=== PATIENT | female | born 1935 | race Caucasian/White ===

== ENCOUNTER 2020-04-10 08:59 | Outpatient (CLI) | payer MEDICARE, SELFPAY ==
--- NOTE | ~2020-04-10 | NM_ITS ---
EXAMINATION: NM parathyroid imaging w spect DATE: 04/10/2020 12:45 INDICATION: Hypercalcemia TECHNIQUE: 18.5 mCi Tc99m tetrofosmin (Myoview) was administered by intravenous route. Anterior image s of the neck were obtained at 10 minutes and 2 hours. COMPARISON: None. FINDINGS/IMPRESSION: There is no focus of persistent activity in the area of the thyroid or mediastinum to suggest parathy roid adenoma. Reviewed, dictated and finalized at location A.
== END 2020-04-10 09:00 | disposition home or self-care (01) ==
PROVIDERS: PCP Family Medicine; Visit Provider Family Medicine
DX: E83.52 Hypercalcemia (principal)
CPT/HCPCS: 78071; A9500

== ENCOUNTER 2020-04-13 11:58 | Outpatient (CLI) | payer MEDICARE, SELFPAY ==
--- NOTE | ~2020-04-13 | XR_ITS ---
EXAMINATION: XR chest 2V DATE: 04/13/2020 12:21 INDICATION: Hypercalcemia. TECHNIQUE: Frontal and lateral views of the chest were obtained. COMPARISON: Chest 2 views 08/11/2008 FINDINGS: Calcified right lung nodules and calcified right hilar lymph nodes are consistent with old granulomatous disease. No pleural effusion or pneumothorax. The heart size is normal. IMPRESSION: 1. No acute cardiopulmonary disease. Reviewed, dictated and finalized at location A.
[2020-04-13 13:31] LABS: Alanine Aminotransferase 20 U/L (4-35); Albumin Level 4.3 g/dL (3.5-5.1); Alkaline Phosphatase 105 U/L (38-126); Anion Gap 1 mmol/L (8-16); Aspartate Amino Transferase 33 U/L (14-36); Bilirubin,Total 0.2 mg/dL (0.2-1.3); Blood Urea Nitrogen 19 mg/dL (7-17); Calcium 11.1 mg/dL (8.4-10.2); Carbon Dioxide 32 mmol/L (22-30); Chloride 104 mmol/L (98-107); Estimated Glomerular Filt Rate > 60; Glucose 94 mg/dL (65-105); Potassium 4.5 mmol/L (3.4-5.0); Sodium 137 mmol/L (137-145)
[2020-04-13 13:42] LABS: Parathyroid Intact 107.6 pg/mL (7.5-53.5)
== END 2020-04-13 11:59 | disposition home or self-care (01) ==
LOC: ANHIMG 12:00
PROVIDERS: PCP Family Medicine; Visit Provider Family Medicine
DX: E83.52 Hypercalcemia (principal)
CPT/HCPCS: 36415; 71046; 80053; 83970

== ENCOUNTER 2020-04-30 08:11 | Outpatient (CLI) | payer MEDICARE, SELFPAY ==
--- NOTE | ~2020-04-30 | US_ITS ---
EXAMINATION: US thyroid DATE: 04/30/2020 08:53 INDICATION: Hyperparathyroidism TECHNIQUE: Multiple ultrasound images of the thyroid were obtained. COMPARISON: None. FINDINGS: The right thyroid lobe measures 4.2 x 2.0 x 2.5 cm. The left thyroid lobe measures 2.0 x 1.2 x 1.0 c m. Bilateral thyroid nodules. There are a couple similar appearing round solid isoechoic nodules wit h smooth margins with echogenic foci. (TI-RADS 4, moderately suspicious , FNA if >=1.5 cm, annual fol lowup is >1 cm) which measure 9 mm and 10 mm in maximal dimensions. 9 mm wider than tall solid hypoec hoic solid nodule with smooth margins and without echogenic foci at the inferior left thyroid, also T I RADS 4. 8 mm wider than tall anechoic nodule with large echogenic foci compatible with, tingling in the mid left thyroid (TI-RADS 2, not suspicious, no FNA recommended). Finally there is a 1.5 x 1.0 x 1.2 cm solid iso to slightly hypoechoic nodule positioned inferior to and appearing separate from th e left thyroid lobe which could represent either a parathyroid adenoma or exophytic left thyroid nodu le which would be (TI-RADS 3, mildly suspicious , FNA if >=2.5 cm, annual followup is >1.5 cm). IMPRESSION: 1. Multinodular goiter, none meeting criteria for ultrasound-guided biopsy and would recommend annual ultrasound follow-up. 2. 1.5 cm nodule inferior to and appearing separate from the left thyroid which is suspicious for par athyroid adenoma although no abnormal activity was identified at this location on the prior parathyro id scintigraphy differential would include exophytic left thyroid nodule. Reviewed, dictated and finalized at location B. IMPRESSION: 1. Multinodular goiter, none meeting criteria for ultrasound-guided biopsy and would recommend annual ultrasound follow-up. 2. 1.5 cm nodule inferior to and appearing separate from the left thyroid which is suspicious for parathyroid adenoma although no abnormal activity was identi fied at this location on the prior parathyroid scintigraphy differential would include exophytic left thyroid nodule.
== END 2020-04-30 08:12 | disposition home or self-care (01) ==
PROVIDERS: PCP Family Medicine; Visit Provider Otolaryngology
DX: E21.3 Hyperparathyroidism, unspecified (principal); E04.2 Nontoxic multinodular goiter
CPT/HCPCS: 76536

== ENCOUNTER 2020-07-21 02:06 | Outpatient (CLI) | payer MEDICARE, SELFPAY ==
[2020-07-21 18:37] LABS: SARS-CoV-2 RNA PCR Negative
== END 2020-07-21 02:07 | disposition home or self-care (01) ==
LOC: ANHCOVIDDT 02:06
PROVIDERS: PCP Family Medicine; Visit Provider Otolaryngology
DX: Z01.812 Encounter for preprocedural laboratory examination (principal); Z20.822 Contact with and (suspected) exposure to COVID-19
CPT/HCPCS: C9803; U0003; U0005

== ENCOUNTER 2020-07-21 08:36 | Outpatient (CLI) | payer MEDICARE, SELFPAY ==
[2020-07-21 08:52] LABS: Hematocrit 37.3 % (37.0-47.0); Hemoglobin 11.9 g/dL (12.0-15.0)
== END 2020-07-21 08:37 | disposition home or self-care (01) ==
PROVIDERS: Anesthesiology; PCP Family Medicine; Visit Provider Otolaryngology
DX: Z01.818 Encounter for other preprocedural examination (principal); D64.9 Anemia, unspecified
CPT/HCPCS: 36415; 85014; 85018

== ENCOUNTER 2020-07-24 01:26 | Day surgery (SDC) | payer MEDICARE, SELFPAY ==
[2020-07-14 12:11] VITALS: BMI 28.8
--- NOTE | 2020-07-22 11:52 | PM.IMHP ---
H&P: HPI History of Present Illness Date/Time: 07/22/20 11:52 Chief Complaint: Hyperparathyroidism. Narrative: Sheela De Jesus is a 84 year old female with hypercalcemia, normal vitamin d, and an elevated pth. Sestamibi scan negative. US demonstrates a left inferior lesion which could represent a parathyroid adenoma. Pt presents for a planned surgical procedure. Review of Systems Constitutional: Constitutional: Denies fatigue, Denies fever(s) and Denies lethargy Eyes: Eyes: Denies blurry vision and Denies change in vision ENT: Reports as per HPI Cardiovascular: Cardiovascular: Denies chest pain Respiratory: Respiratory: Denies cough Endocrine: Endocrine: Denies fatigue Hematologic/Lymphatic: Hematologic/Lymphatic: Denies easy bleeding, Denies easy bruising and Denies lymphadenopathy Allergic/Immunologic: Allergic/Immunologic: Denies seasonal rhinorrhea [facility] Surgical History Surgical History History of carpal tunnel release Status post appendectomy Status post bunionectomy Status post hysterectomy with oophorectomy Status post nasal septoplasty Status post partial thyroidectomy Status post tonsillectomy and adenoidectomy Status post trigger finger release Status post tubal ligation Family History Family History Father Family history of lung cancer Patient's father is Family history of malignant neoplasm of urinary bladder Mother Family history of lung cancer Family history of malignant neoplasm of breast in first degree relative Patient's mother is Sibling Family history of lung cancer Patient's brother is Other Family history of malignant neoplasm of male breast Social History Social History Years smoked: 30 Smoking status: Former smoker Tobacco type: cigarettes Second hand tobacco smoke exposure: No Smoking end date: 01/01/92 Additional smoking assessment comments: FEW CIG/WEEK FOR YEARS Alcohol intake: current Drinks per week: 0 Substance use: never Substance use type: does not use Gender identity (if verbalized by the patient): Female Spiritual care concerns: No Meds Home Medications and Allergies Home Medications Medication Instructions Recorded Confirmed Type ascorbate calcium (vitamin C) 500 500 mg PO DAILY 05/15/19 07/14/20 History mg tablet aspirin 81 mg tablet,delayed 81 mg PO DAILY 05/15/19 07/14/20 History release ferrous gluconate 240 mg (27 mg 240 mg PO DAILY 05/15/19 07/14/20 History iron) tablet multivitamin 1 tablet PO DAILY 05/15/19 07/14/20 History levothyroxine 50 mcg tablet 50 mcg PO DAILY #90 tablet 02/26/20 07/14/20 Rx Allergies Allergy/AdvReac Type Severity Reaction Status Date / Time hydrocodone Allergy Mild itching Verified 07/14/20 12:05 midazolam AdvReac Unknown AFFECTS Verified 07/14/20 12:05 MEMORY TOO LONG Sulfa (Sulfonamide AdvReac Unknown Hallucinati Verified 07/14/20 12:05 Antibiotics) ng Exam Const: General: cooperative, healthy appearing, comfortable, well developed and alert HENMT: Head: normal to inspection, normocephalic and atraumatic Ears: hearing grossly normal bilaterally, external ears normal, TM's normal bilaterally and EAC's normal General nose exam: Normal external nose present, Normal nares present, No nasal polyps present, Normal nasal mucous membranes and turbinates present and Normal septum present Face and sinus: normal facial exam Mouth: Yes Normal oral and palatal mucosa present, Yes lip normal, Yes tongue normal, Yes oropharynx normal and Yes moist mucous membranes Teeth and gingiva: dentition normal and gingiva normal Throat: posterior oropharynx normal, tonsils normal and uvula midline Eyes: General: appearance normal, both eyes and all related structures Periorbital: periorbital fin
--- NOTE | 2020-07-23 15:16 | WPDANESEPPF ---
Anes - Initial Pre Proc Eval Procedure: Operation Date: 07/24/20 14:00 Proposed Procedures p Parathyroid Exploration - Yuan Devine MD Date/Time: 07/23/20 15:16 Surgeon: Yuan Devine MD Pre Op Diagnosis: hyperparathyroidism Patient Data Age: 84 Gender: F Height: 1.52 m Weight: 67 kg Allergies Allergy/AdvReac Type Severity Reaction Status Date / Time hydrocodone AdvReac Unknown Unknown Verified 07/24/20 11:25 midazolam AdvReac Unknown AFFECTS Verified 07/24/20 11:25 MEMORY TOO LONG Sulfa (Sulfonamide AdvReac Unknown Hallucinati Verified 07/24/20 11:25 Antibiotics) ng Home Medications Medication Instructions Recorded Confirmed Type ascorbate calcium (vitamin C) 500 500 mg PO DAILY 05/15/19 07/24/20 History mg tablet aspirin 81 mg tablet,delayed 81 mg PO DAILY 05/15/19 07/24/20 History release ferrous gluconate 240 mg (27 mg 240 mg PO DAILY 05/15/19 07/24/20 History iron) tablet multivitamin 1 tablet PO DAILY 05/15/19 07/24/20 History levothyroxine 50 mcg tablet 50 mcg PO DAILY #90 tablet 02/26/20 07/24/20 Rx Patient hx anesthesia problems: none Family hx anesthesia problems: none PMFSH Past Medical History Medical History (Updated 07/23/20 @ 15:17 by Jose Antonio Bird MD) Essential tremor Gastro-esophageal reflux disease without esophagitis Hyperparathyroidism Hypothyroidism Osteoarthritis, generalized Vitamin D deficiency, unspecified Surgical History Surgical History History of carpal tunnel release Status post appendectomy Status post bunionectomy Status post hysterectomy with oophorectomy Status post nasal septoplasty Status post partial thyroidectomy Status post tonsillectomy and adenoidectomy Status post trigger finger release Status post tubal ligation Family History Family History Father Family history of lung cancer Patient's father is Family history of malignant neoplasm of urinary bladder Mother Family history of lung cancer Family history of malignant neoplasm of breast in first degree relative Patient's mother is Sibling Family history of lung cancer Patient's brother is Other Family history of malignant neoplasm of male breast Social History Social History Years smoked: 30 Smoking status: Former smoker Tobacco type: cigarettes Second hand tobacco smoke exposure: No Smoking end date: 01/01/92 Additional smoking assessment comments: FEW CIG/WEEK FOR YEARS Alcohol intake: current Drinks per week: 0 Substance use: never Substance use type: does not use Living arrangements: alone Gender identity (if verbalized by the patient): Female Spiritual care concerns: No Anes - Eval Final PreProcedure Day of Procedure 07/23/20 15:16 Patient weight: obese Heart: regular rate and rhythm Lungs: clear to auscultation and normal air movement Airway: Mallampati scale class II Neurological: alert and oriented Last oral intake: >/= 8 hours ASA classification: III Emergent: no Anesthetic plan: proceed Anesthesia type and monitoring: general GIVS Informed Consent: The patient's anesthetic plan and its attendant risks and benefits were discussed with the patient/family/POA. Questions were solicited and answers provided to the satisfaction of the patient/family/POA.
[2020-07-24] VITALS (12 sets, daily range): BP systolic 123–149; BP diastolic 55–87; PULSE 70–81; RESP 12–20; TEMP 36.6–37.5; O2SAT 96–100
--- NOTE | ~2020-07-24 | NM_ITS ---
EXAMINATION: NM parathyroid injection only DATE: 07/24/2020 13:03 INDICATION: Hyperparathyroidism. TECHNIQUE: 5 mCi Tc99m sestamibi was administered intravenously for intraoperative localization. No i mages were obtained. IMPRESSION: 1. Radiotracer injection. Reviewed, dictated and finalized at location B. MANAGERS IMPRESSION: 1. Radiotracer injection.
--- NOTE | 2020-07-24 06:56 | WPDHPUPDATE1 ---
History and Physical Update Update Date/Time: 07/24/20 06:56 History and Physical has been reviewed, including an updated exam of the patient. There are NO changes in the patient's condition. Risks, benefits, and alternatives have been discussed and questions answered. Patient agrees to proceed with procedure.
[2020-07-24] MEDS: LACTATED RINGERS 1,000 ML 30 ML IV CONT ×2 (11:50→15:43)
[2020-07-24 13:28] LABS: Parathyroid Intact 219.4 pg/mL (7.5-53.5)
[2020-07-24] MEDS: ceFAZolin 500 MG in DEXTROSE 5% IN WATER 50 ML 100 MG IVPB (13:44)
[2020-07-24] MEDS: LIDO 1%/EPINEPHRINE 1:100,000 20 ML VIAL INFILTRATE (14:00)
--- NOTE | 2020-07-24 14:47 | SUR.OPER ---
Frozen Section sent with WILBERTO Greenwood and received in pathology by Roseanne
--- NOTE | 2020-07-24 15:05 | SUR.OPER ---
PTH sent with WILBERTO Greenwood and received in the lab by Fina
[2020-07-24 15:33] LABS: Parathyroid Intact 32.4 pg/mL (7.5-53.5)
--- NOTE | 2020-07-24 15:53 | PM.PROC ---
Procedure Note - Detailed Date of procedure: 07/24/20 Pre-op diagnosis: hyperparathyroidism Post-op diagnosis: same Procedure performed: Parathyroidectomy Description of procedure: The patient was correctly identified and consent was verified in the preoperative holding area. The patient was then brought to the operating room and a time-out was performed. General anesthesia was induced an endotracheal tube was secured the patient's airway and secured. This was a Nims monitoring tube. The patient was then prepped and draped for the aforementioned procedures. Previous thyroidectomy scar was utilized and 2 cc of 1% lidocaine with 1 100,000 parts epinephrine was injected deep to the scar. Fifteen blade was utilized to incise the midportion of the scar. Dissection with hemostats as well as Bovie electrocautery was utilized to exposed the left thyroid bed. The adenoma was visible and it was noted that the recurrent laryngeal nerve on the left was superficial to the adenoma. The nerve was gently dissected off of it and adenoma removed with a combination of blunt dissection Bovie electrocautery ligature as well as bipolar. Hemostasis was noted to be excellent. 15 minutes after adenoma removal a PTH was checked and noted to be 32 with the original PTH being 220. The wound was then copiously copiously irrigated and a small amount of hematomas applied to the bed. The deep areas were closed the straps in the midline were closed with 3 0 Vicryl sutures in the platysma was reapproximated with 3 0 Vicryl sutures. A 4 0 running Monocryl was utilized in the deep dermal layer. The skin was glued closed. As the patient awoke a glide scope was utilized to confirm that both vocal cords moved. The vocal cord on the left did not stimulate intraoperatively for some portion. I performed all portions of the procedure. Care of the patient was turned over to Anesthesiology. Anesthesia: GLMA Surgeon: Yuan Devine MD Estimated blood loss (mL): 5 Complications: No immediate complications Condition: stable Disposition: PACU
[2020-07-24] MEDS: fentaNYL CITRATE INJ (*CRX) 100 MCG/2 ML VIAL 25 MCG IV PUSH ×2 (15:54→16:04)
--- NOTE | 2020-07-24 16:51 | SUR.PHASEI ---
7999 - dr. amador at bedside
--- NOTE | 2020-07-24 17:00 | SUR.PHASEI ---
1700 - dr. amador at bedside talking with pt
== END 2020-07-24 18:27 | disposition home or self-care (01) ==
PROVIDERS: PCP Family Medicine; Visit Provider Otolaryngology
PROC: (CPT 60500; principal; 2020-07-24 14:00)
DX: E21.3 Hyperparathyroidism, unspecified (principal); D35.1 Benign neoplasm of parathyroid gland; E89.0 Postprocedural hypothyroidism; K21.9 Gastro-esophageal reflux disease without esophagitis; E55.9 Vitamin D deficiency, unspecified; G25.0 Essential tremor; Z79.82 Long term (current) use of aspirin; Z87.891 Personal history of nicotine dependence
CPT/HCPCS: 60500; 36415; 78808; 83970; 85014; 85018; 88305; 88331; A9270; A9500; C9803; J0330; J0690; J1100; J2405; J3010; J7120; U0003; U0005

== ENCOUNTER 2020-08-20 07:53 | Outpatient (CLI) | payer MEDICARE, SELFPAY ==
[2020-08-20 08:21] LABS: Anion Gap 8 mmol/L (8-16); Blood Urea Nitrogen 24 mg/dL (7-17); Calcium 9.2 mg/dL (8.4-10.2); Carbon Dioxide 28 mmol/L (22-30); Chloride 104 mmol/L (98-107); Estimated Glomerular Filt Rate > 60; Glucose 96 mg/dL (65-105); Potassium 4.2 mmol/L (3.4-5.0); Sodium 140 mmol/L (137-145)
== END 2020-08-20 07:54 | disposition home or self-care (01) ==
LOC: ANHLAB 07:56
PROVIDERS: PCP Family Medicine; Visit Provider Family Medicine
DX: E21.3 Hyperparathyroidism, unspecified (principal)
CPT/HCPCS: 36415; 80048

== ENCOUNTER 2021-03-17 11:06 | Outpatient (CLI) | payer MEDICARE, SELFPAY ==
--- NOTE | ~2021-03-17 | XR_ITS ---
EXAMINATION: XR chest 2V 03/17/2021 11:40 INDICATION: Intermittent cough PROCEDURE: 2 view chest COMPARISON: 04/13/2020 FINDINGS: The lungs are clear. The cardiomediastinal silhouette is within normal limits. There are no pleural effusions. There is no pneumothorax suspected. There are calcified granulomas in the rig ht lung. IMPRESSION: 1: NO ACUTE CARDIOPULMONARY DISEASE. Reviewed, dictated and finalized at location A.
== END 2021-03-17 11:07 | disposition home or self-care (01) ==
LOC: ANHIMG 11:10
PROVIDERS: PCP Family Medicine; Visit Provider Nurse Practitioner Family
DX: R05 Cough (principal)
CPT/HCPCS: 71046

== ENCOUNTER → 2021-04-02 10:45 | Outpatient (CLI) | payer MEDICARE, SELFPAY ==
--- NOTE | ~2021-04-02 | DEXA_ITS ---
Bone Density Report Name: Sheela De Jesus Age: 85 Sex: Female Ethnicity: White Date of : 1935 Indication: postmenopausal; screening for osteoporosis; height loss; prior fracture; hysterectomy; Referring Provider: Jessica Garcia Study: Bone densitometry was performed. Exam Date: April 02, 2021 Accession number: [id number] Bone Density: Region BMD T-score Z-score Classification AP Spine (L1-L4) 1.386 3.1 5.9 Normal Femoral Neck (Left) 0.715 -1.2 1.3 Osteopenia Total Hip (Left) 0.898 -0.4 1.9 Normal Femoral Neck (Right) 0.666 -1.7 0.8 Osteopenia Total Hip (Right) 0.888 -0.4 1.8 Normal Total Hip Mean 0.893 -0.4 1.9 Normal World Health Organization criteria for BMD impression classify patients as: Normal (T-score at or above -1.0), Osteopenia (T-score between -1.0 and -2.5), or Osteoporosis (T-score at or below -2.5). 10-year Fracture Risk(1): Major Osteoporotic Fracture 20% Hip Fracture 5.2% Reported Risk Factors: [place] (), Neck BMD=0.666, BMI=25.6, previous fracture (1) FRAX(R) Version 3.08. Fracture probability calculated for an untreated patient. Fracture probability may be lower if the patient has received treatment. Previous Exams: Region Exam Age BMD T-score BMD Change BMD Change Date g/cm2 vs Baseline vs Previous AP Spine(L1-L4) 04/02/2021 85 1.386 3.1 0.052* 0.052* 01/24/2018 82 1.333 2.6 Total Hip(Left) 04/02/2021 85 0.898 -0.4 -0.023 -0.023 01/24/2018 82 0.920 -0.2 Total Hip(Right) 04/02/2021 85 0.888 -0.4 -0.064* -0.064* 01/24/2018 82 0.952 0.1 *Denotes significance at 95% confidence level, LSC for AP Spine = 0.022 g/cm2, LSC for Total Hip = 0.027 g/cm2 Clinical Information Provided by Patient: Has had a low trauma fracture Has used the following medications: Calcium Has the following medical conditions: Hysterectomy Patient maximum height was 65.75 Menopause Age: 47 Drinks caffeinated beverages Onset of menses at age 14 Number of children 2 Impression: The patient has low bone mass, based on the Right Femoral Neck T-score. The patient has an estimated ten-year risk of hip fracture of 5.2% and an estimated ten-year risk of major fracture of 20%, based on the WHO FRAX algorithm. The patient has risk factors, including: previous fracture. The BMD for the Total Hip(Right) decreased, changing by -0.064 since the last DXA exam.
== END ==
PROVIDERS: PCP Family Medicine; Visit Provider Nurse Practitioner Family
DX: M85.88 Other specified disorders of bone density and structure, other site (principal); M85.852 Other specified disorders of bone density and structure, left thigh; M85.851 Other specified disorders of bone density and structure, right thigh
CPT/HCPCS: 77080

== ENCOUNTER → 2021-04-08 13:20 | Outpatient (CLI) | payer MEDICARE, SELFPAY ==
--- NOTE | ~2021-04-08 | MM_ITS ---
EXAMINATION: MM screening juju BI w jessica HISTORY: Screening mammogram, family history of breast cancer in her mother. TECHNIQUE: Craniocaudal and mediolateral oblique 3-D tomosynthesis images were obtained and synthetic 2-D images were generated. CAD analysis was submitted and interpreted. COMPARISON: 02/25/2019 BREAST PARENCHYMAL COMPOSITION: The breasts are heterogeneously dense, which may obscure small masses . FINDINGS: Again noted is a stable obscured mass of the right breast, considered benign given the lack of interval change. There is no evidence of suspicious mass, calcification, or architectural distort ion to suggest malignancy in either breast. There has been no suspicious interval change. IMPRESSION: 1. No mammographic evidence of malignancy. 2. Recommend routine screening mammography while the patient remains in good health. BI-RADS Category 2: Benign finding(s). Reviewed, dictated and finalized at location A. IMPRESSION: 1. No mammographic evidence of malignancy. 2. Recommend routine screening mammography while the patient remains in good he alth. BI-RADS Category 2: Benign finding(s).
== END ==
PROVIDERS: PCP Family Medicine; Visit Provider Nurse Practitioner Family
DX: Z12.31 Encounter for screening mammogram for malignant neoplasm of breast (principal)
CPT/HCPCS: 77063; 77067

== ENCOUNTER → 2021-06-16 08:14 | Outpatient (CLI) | payer MEDICARE, SELFPAY ==
[2021-06-16 11:59] LABS: Influenza Control Positive
[2021-06-16 18:29] LABS: SARS-CoV-2 RNA PCR Negative
== END ==
PROVIDERS: PCP Family Medicine; Visit Provider Physician Assistant
DX: R53.83 Other fatigue (principal); R52 Pain, unspecified; Z20.822 Contact with and (suspected) exposure to COVID-19
CPT/HCPCS: 87804; C9803; U0003; U0005

== ENCOUNTER 2023-02-22 11:01 | Emergency (ER) | payer MEDICARE, SELFPAY ==
--- NOTE | ~2023-02-22 | XR_ITS ---
EXAMINATION: XR hand LT min 3V INDICATION: Left hand pain and swelling TECHNIQUE: Three views of the left hand are obtained on four radiographs. COMPARISON: None available FINDINGS: There is advanced osteoarthritis at the first carpometacarpal and triscaphe joints. There i s a subtle transverse lucency of the scaphoid. Heterotopic ossification surrounds the carpals. There are lucencies in multiple carpal bones, consistent with osteoarthritis. There is mild to moderate ost eoarthritis of multiple interphalangeal joints. There is soft tissue swelling of the wrist and proxim al hand. IMPRESSION: 1. Subtle transverse lucency of the scaphoid which could reflect nondisplaced fracture. 2. Moderate to severe polyarticular osteoarthritis. Reviewed, dictated and finalized at location A. IMPRESSION: 1. Subtle transverse lucency of the scaphoid which could reflect nondisplaced f racture. 2. Moderate to severe polyarticular osteoarthritis.
[2023-02-22 11:24] VITALS: BP 150/79; PULSE 83; RESP 16; TEMP 36.4; O2SAT 100
--- NOTE | 2023-02-22 13:19 | ED.GENADULT ---
HPI - General Adult General Chief complaint: Extremity Injury, Upper Stated complaint: swelling left hand Time Seen by Provider: 02/22/23 12:02 History of Present Illness HPI narrative: 87-year-old female present emergency department for evaluation of left hand pain. Patient states pain started a few days ago. Patient denies any specific incident of falls or injuries. Patient denies any fevers. Patient was complaining of left hand pain at the anatomical snuffbox. Patient did have some edema. Patient denies any other pain or injury. Related Data Home Medications Medication Instructions Recorded Confirmed ascorbate calcium (vitamin C) 500 500 mg PO DAILY 05/15/19 07/24/20 mg tablet aspirin 81 mg tablet,delayed 81 mg PO DAILY 05/15/19 07/24/20 release multivitamin 1 tablet PO DAILY 05/15/19 07/24/20 Allergies Allergy/AdvReac Type Severity Reaction Status Date / Time hydrocodone AdvReac Unknown Unknown Verified 02/22/23 11:39 midazolam AdvReac Unknown AFFECTS Verified 02/22/23 11:39 MEMORY TOO LONG Sulfa (Sulfonamide AdvReac Unknown Hallucinati Verified 02/22/23 11:39 Antibiotics) ng Review of Systems Review of Systems: All systems reviewed & are unremarkable except as noted in HPI and below PMFSH Past Medical History Medical History Essential tremor Gastro-esophageal reflux disease without esophagitis Hyperparathyroidism Hypothyroidism Osteoarthritis, generalized Parathyroid tumor Vitamin D deficiency, unspecified Surgical History Surgical History History of carpal tunnel release Status post appendectomy Status post bunionectomy Status post hysterectomy with oophorectomy Status post nasal septoplasty Status post partial thyroidectomy Status post tonsillectomy and adenoidectomy Status post trigger finger release Status post tubal ligation Family History Family History Father Family history of lung cancer Patient's father is Family history of malignant neoplasm of urinary bladder Mother Family history of lung cancer Family history of malignant neoplasm of breast in first degree relative Patient's mother is Sibling Family history of lung cancer Patient's brother is Other Family history of malignant neoplasm of male breast Social History Social History Years smoked: 30 Smoking status: Former smoker Tobacco type: cigarettes Second hand tobacco smoke exposure: No Smoking end date: 01/01/92 Additional smoking assessment comments: FEW CIG/WEEK FOR YEARS Alcohol intake: current Drinks per week: 0 Alcohol use details: rare Substance use: never Substance use type: does not use Living arrangements: alone Occupation/Education: retired Gender identity (if verbalized by the patient): Female Spiritual care concerns: No Exam Narrative: APPEARANCE: Well appearing, no pain, no distress, well-nourished. HEAD: normocephalic, atraumatic. EYES: PERRLA/EOMI, conjunctivae clear. NOSE: Normal no drainage EARS:TMS clear with good light reflex. THROAT: Pharynx clear, no exudate. NECK: Supple. No adenopathy, no masses. RESPIRATORY: Airway patent, respirations nonlabored. Clear to auscultation bilaterally, no rales, rhonchi, wheezing. CARDIOVASCULAR: Regular rate and rhythm without murmurs rubs or gallops. ABDOMINAL: Soft, nontender, nondistended, normal bowel sounds MUSCULOSKELETAL: Edema over anatomic snuffbox of left hand. Neurovascular intact. Strong cap refill NEURO: Alert. Cranial nerves II through XII intact. Grossly intact SKIN: Warm, dry. Normal Color Course Course Emergency Course: 87-year-old female presented ED for evaluation of tenderness on left hand. X-ray was concerning for a scaphoid fracture.
== END 2023-02-22 13:37 | disposition home or self-care (01) ==
PROVIDERS: Emergency Provider Emergency Medicine; PCP Family Medicine
DX: S62.002A Unspecified fracture of navicular [scaphoid] bone of left wrist, initial encounter for closed fracture (principal); E21.3 Hyperparathyroidism, unspecified; E89.0 Postprocedural hypothyroidism; E55.9 Vitamin D deficiency, unspecified; M18.9 Osteoarthritis of first carpometacarpal joint, unspecified; M19.032 Primary osteoarthritis, left wrist; K21.9 Gastro-esophageal reflux disease without esophagitis; Z87.891 Personal history of nicotine dependence; Z90.710 Acquired absence of both cervix and uterus; Z79.82 Long term (current) use of aspirin; X58.XXXA Exposure to other specified factors, initial encounter
CPT/HCPCS: 29125; 73130; 99284; A4565

== ENCOUNTER 2023-03-09 11:52 | Outpatient (CLI) | payer MEDICARE, SELFPAY ==
--- NOTE | ~2023-03-09 | XR_ITS ---
EXAMINATION: XR wrist LT min 3V DATE: 03/09/2023 12:11 INDICATION: Unspecified fracture of the navicular TECHNIQUE: Posteroanterior, ulnar deviation, oblique, and lateral views of the left wrist were obtain ed. COMPARISON: 02/22/2023 FINDINGS: A subtle transverse lucency of the scaphoid is again seen. There is advanced osteoarthritis at the first carpometacarpal and triscaphe joints. Heterotopic ossification surrounds the carpals. L ucencies in multiple carpal bones are again noted, consistent with osteoarthritis. IMPRESSION: 1. Unchanged subtle transverse lucency of the scaphoid, probable nondisplaced fracture. 2. Moderate to severe polyarticular osteoarthritis. Reviewed, dictated and finalized at location L. IMPRESSION: 1. Unchanged subtle transverse lucency of the scaphoid, probable nondisplaced f racture. 2. Moderate to severe polyarticular osteoarthritis.
== END 2023-03-09 11:53 | disposition home or self-care (01) ==
LOC: ANHIMG 11:55
PROVIDERS: PCP Family Medicine; Visit Provider Physician Assistant Surgical
DX: S62.002A Unspecified fracture of navicular [scaphoid] bone of left wrist, initial encounter for closed fracture (principal); X58.XXXA Exposure to other specified factors, initial encounter; M19.032 Primary osteoarthritis, left wrist
CPT/HCPCS: 73110

== ENCOUNTER 2023-03-23 09:52 | Outpatient (CLI) | payer MEDICARE, SELFPAY ==
--- NOTE | ~2023-03-23 | XR_ITS ---
Left wrist Technique: PA, oblique, lateral, and ulnar deviation views were obtained. Clinical History: Scaphoid fracture Findings: Transverse nondisplaced scaphoid fracture appears to be nearly completely healed, with poor identification of the fracture line seen on prior exam. There is advanced degenerative change of the first CMC joint. There is mild degenerative change of the radial scaphoid articulation.. Joint space s are preserved. Soft tissues are unremarkable. Impression: Near completely healed scaphoid fracture. Fracture line is not clearly visible on the current exam. Advanced degenerative change of the first CMC joint. Mild degenerative change of the radial scaphoid joint. Reviewed, dictated and finalized at location . Impression: Near completely healed scaphoid fracture. Fracture line is not clearly visible on the current exam. Advanced degenerative change of the first CMC joint. Mild degenerative change o f the radial scaphoid joint.
== END 2023-03-23 09:53 | disposition home or self-care (01) ==
PROVIDERS: PCP Family Medicine; Visit Provider Physician Assistant Surgical
DX: S62.002A Unspecified fracture of navicular [scaphoid] bone of left wrist, initial encounter for closed fracture (principal); X58.XXXA Exposure to other specified factors, initial encounter
CPT/HCPCS: 73110

== ENCOUNTER 2023-05-22 09:38 | Outpatient (CLI) | payer MEDICARE, SELFPAY ==
--- NOTE | ~2023-05-22 | XR_ITS ---
XR wrist LT min 3V 05/22/2023 09:58 Indication: Scaphoid fracture Procedure: 4 views left wrist Comparison: No prior studies for comparison. Findings: Osteopenia. There is severe osteoarthritis of the first carpometacarpal and triscaphe joints. No defi nite scaphoid fracture identified on the current study. There are is mild additional areas of polyarticular osteoarthritis of the wrist. Chondrocalcinosis. Impression: 1: No definite scaphoid fracture identified on current study. 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 Reviewed, dictated and finalized at location B. 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
== END 2023-05-22 09:39 | disposition home or self-care (01) ==
PROVIDERS: PCP Family Medicine; Visit Provider Physician Assistant Surgical
DX: S62.002A Unspecified fracture of navicular [scaphoid] bone of left wrist, initial encounter for closed fracture (principal); X58.XXXA Exposure to other specified factors, initial encounter; M19.032 Primary osteoarthritis, left wrist
CPT/HCPCS: 73110

== ENCOUNTER 2023-08-31 14:37 | Outpatient (CLI) | payer MEDICARE, SELFPAY ==
--- NOTE | ~2023-08-31 | DEXA_ITS ---
Bone Density Report Name: ENIO SINGH Age: 88 Sex: Female Ethnicity: White Date of : 1935 Indication: postmenopausal; screening for osteoporosis; height loss; hysterectomy; Referring Provider: ANGELA QUIÑONEZ Study: Bone densitometry was performed. Exam Date: August 31, 2023 Accession number: [id number] Bone Density: Region BMD T-score Z-score Classification AP Spine(L3, L4) 1.444 3.1 6.1 Normal Femoral Neck (Left) 0.709 -1.3 1.3 Osteopenia Total Hip (Left) 0.934 -0.1 2.3 Normal Femoral Neck (Right) 0.728 -1.1 1.4 Osteopenia Total Hip (Right) 0.971 0.2 2.6 Normal Total Hip Mean 0.953 0.1 2.5 Normal World Health Organization criteria for BMD impression classify patients as: Normal (T-score at or above -1.0), Osteopenia (T-score between -1.0 and -2.5), or Osteoporosis (T-score at or below -2.5). 10-year Fracture Risk(1): Major Osteoporotic Fracture 12% Hip Fracture 3.1% Reported Risk Factors: [place] (), Neck BMD=0.709, BMI=24.8 (1) FRAX(R) Version 3.08. Fracture probability calculated for an untreated patient. Fracture probability may be lower if the patient has received treatment. Clinical Information Provided by Patient: Has the following medical conditions: Hysterectomy Patient maximum height was 66 Drinks caffeinated beverages Onset of menses at age 14 Number of children 2 Impression: The patient has low bone mass, based on the Left Femoral Neck T-score. The patient has an estimated ten-year risk of hip fracture of 3.1% and an estimated ten-year risk of major fracture of 12%, based on the WHO FRAX algorithm. Discussion: BONE DENSITY IS LOW AT ONE OR MORE SKELETAL SITES. THE PATIENT'S BMD AND CLINICAL RISK FACTORS CONTRIBUTE TO THIS PATIENT'S INCREASED RISK OF FRACTURE. This patient's lowest T-score is low at one or more skeletal sites. It meets the World Health Organization's (WHO) criteria for ?low bone mass? (T-score between -1.0 and -2.5). The patient's 10-year risk of hip fracture as calculated by FRAX exceeds the threshold where pharmacological therapy is recommended by the National Osteoporosis Foundation (NOF). However, all treatment decisions require clinical judgment and consideration of individual patient factors, including patient preferences, comorbidities, previous drug use, risk factors not captured in the FRAX model (e.g., frailty, falls, vitamin D deficiency, increased bone turnover, interval significant decline in bone density) and possible under or overestimation of fracture risk by FRAX. The patient should follow a healthful lifestyle (good nutrition with adequate calcium and vitamin D, and appropriate weight-bearing exercise). Follow-Up: Consider a repeat BMD and Vertebral Fracture Assessment (VFA) exam in 2 years or soone
--- NOTE | ~2023-08-31 | MM_ITS ---
EXAMINATION: MM screening juju BI w jessica HISTORY: Screening TECHNIQUE: Craniocaudal and mediolateral oblique 3-D tomosynthesis images were obtained and synthetic 2-D images were generated. CAD analysis was submitted and interpreted. COMPARISON: Comparison to multiple prior studies sequentially, with oldest reviewed study dated 12/19. BREAST PARENCHYMAL COMPOSITION: Dense: The breasts are heterogeneously dense, which may obscure small masses FINDINGS: Stable benign-appearing right breast mass. Stable benign-appearing bilateral breast calcifi cations. There is no evidence of suspicious mass, calcification, or architectural distortion to sugge st malignancy in either breast. There has been no suspicious interval change. IMPRESSION: 1. No mammographic evidence of malignancy. 2. Recommend routine screening mammography in one year. BI-RADS Category 1: Negative Reviewed, dictated and finalized at location A. 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
== END 2023-08-31 14:38 | disposition home or self-care (01) ==
PROVIDERS: PCP Family Medicine; Visit Provider Physician Assistant
DX: Z12.31 Encounter for screening mammogram for malignant neoplasm of breast (principal); M81.0 Age-related osteoporosis without current pathological fracture; M85.80 Other specified disorders of bone density and structure, unspecified site; M85.852 Other specified disorders of bone density and structure, left thigh; M85.851 Other specified disorders of bone density and structure, right thigh
CPT/HCPCS: 77063; 77067; 77080

== ENCOUNTER 2024-12-12 08:40 | Outpatient (CLI) | payer MEDICARE, SELFPAY ==
--- NOTE | ~2024-12-12 | MM_ITS ---
EXAMINATION: MM screening juju BI w jessica HISTORY: Screening TECHNIQUE: Craniocaudal and mediolateral oblique 3-D tomosynthesis images were obtained and synthetic 2-D images were generated. CAD analysis was submitted and interpreted. COMPARISON: Comparison to multiple prior studies sequentially, with oldest reviewed study dated 01/22. BREAST PARENCHYMAL COMPOSITION: Dense: The breasts are extremely dense, which lowers the sensitivity of mammography. FINDINGS: There is no evidence of suspicious mass, calcification, or architectural distortion to sugg est malignancy in either breast. There has been no suspicious interval change. IMPRESSION: 1. No mammographic evidence of malignancy. 2. Recommend routine screening mammography in one year. BI-RADS Category 1: Negative Reviewed, dictated and finalized at location B.
== END 2024-12-12 08:41 | disposition home or self-care (01) ==
LOC: ANHIMG 08:41
PROVIDERS: PCP Family Medicine; Visit Provider Student in an Organized Health Care Education/Training Program
DX: Z12.31 Encounter for screening mammogram for malignant neoplasm of breast (principal)
CPT/HCPCS: 77063; 77067

== ENCOUNTER 2025-01-06 16:47 | Outpatient (CLI) | payer MEDICARE, SELFPAY ==
--- NOTE | ~2025-01-06 | XR_ITS ---
Lumbosacral Spine: AP and lateral views Clinical History: Pain Findings: There is dextroscoliosis, apex at T12-L1 level. No fracture evident. There is 12 mm anterol isthesis of L4 over L5. There is 6 mm anterolisthesis of L5 over S1. There is 5 mm retrolisthesis of L2 over L3. There is severe degenerative spurring at L1-L2 and L2-L3. There is severe facet arthropat hy from L3 through S1. The sacroiliac joints are normally outlined. Impression: Dextroscoliosis. 12 mm anterolisthesis of L4 over L5. 6 mm anterolisthesis of L5 over S1. 5 mm retrolisthesis of L2 over L3. Advanced degenerative spondylosis, as above. Reviewed, dictated and finalized at [facility]. Impression: Dextroscoliosis. 12 mm anterolisthesis of L4 over L5. 6 mm anterolisthesis of L5 over S1. 5 mm retrolisthesis of L2 over L3. Advanced degenerative spondylosis, as above.
== END 2025-01-06 16:48 | disposition home or self-care (01) ==
LOC: ANHIMG 16:49
PROVIDERS: PCP Family Medicine; Visit Provider Family Medicine
DX: M47.896 Other spondylosis, lumbar region (principal)
CPT/HCPCS: 72100

== ENCOUNTER 2025-03-24 10:00 | Outpatient (RCR) | payer MEDICARE, SELFPAY ==
--- NOTE | 2025-02-05 11:10 | PCPTNOTE ---
pt arrived late to [facility] today, went to the [facility]
--- NOTE | 2025-02-05 11:54 | OPREHPOC ---
Outpatient Therapy Plan of Care This is a Multidisciplinary Plan of Care that may contain components documented by all disciplines (PT, OT, and ST.) PT Problem 1 PT Problem #1 Knowledge Deficit PT Goal 1 Goal / Goal Update Patient to demonstrate independence with HEP for improved self-reliance of symptom management. Target Visit 5 PT Problem 2 PT Problem #2 Pain PT Goal 1 Goal / Goal Update 1. Patient to decrease subjective reports of pain to <4/10 when walking >=10 minutes for improved ADL tolerance. 2. Patient to report an improvement in radiating symptoms at rest by 25% to increase ability to perform ADLs. 3. Patient will decrease their Modified Oswestry score by at least 10 points to indicate significant improvement in functional abilities and quality of life. Target Visit 10 PT Problem 3 PT Problem #3 Impaired Range of Motion PT Goal 1 Goal / Goal Update Pt to achieve neutral spine position in standing with decreased radicular symptoms to improve posture. Target Visit 10 PT Problem 4 PT Problem #4 Impaired Endurance PT Goal 1 Goal / Goal Update Patient to improve distance ambulated during 2MWT from 143 feet to 200 feet to demonstrate an improvement in ADL endurance required for grocery shopping. Target Visit 10
--- NOTE | 2025-02-05 11:54 | PTOPEVAL1 ---
Assessment and note entered by Dona Cuellar PT Evaluation Information Assessment Status Evaluation ICD-10 Condition Codes (PT) Pain in low back M54.50 Subjective Information Primary Complaint: Low Back Pain Pain description: radiating down NEETA posterior thigh stopping at knee History of current condition: Pt reports symptoms started over 6 months ago. She has been having a hard time with pain in the morning when she first wakes up. She feels like her legs are going to give out from the pain so she started using her cane. Sxs made worse with: waking in am, prolonged walking and standing, limited grocery shopping <15 minutes Sxs improved with: Aleve, sitting to rest after standing and walking CLOF: using SC in R UE due to pain (limited stability due to tremors), struggling with stairs (1 to enter condo), has to take rest breaks when cleaning, cooking, bathing and dressing PLOF: no limitations Reported Pain Level Pain Score 3: Self Report Additional Pain Score Comments pt has a difficult time describing her pain I know it just hurts Assessment PT Clinical Summary Pt is a 89 year old female who presents to physical therapy with a primary complaint of low back and B post thigh pain. Pt demonstrates BLE weakness, pain, decreased mobility, abnormal posture, gait deficit, and decreased flexibility that limit their ability to perform ADLs. Pt has difficulty with general mobility due to pain and would benefit from starting aquatic therapy to reduce the effects of gravity on the spine. Pt will benefit from skilled physical therapy to address the above listed deficits and return to PLOF. HEP instructed and written handout provided, EX tolerated well with no adverse effects to note post-session. Pt was educated on importance of adherence to HEP. Pt was also educated on anatomy, prognosis, home modalities, and PT POC. Plan of Care Interventions Aquatic Therapy,Gait Training,Hot Pack/Cold Pack, Manual Therapy,Patient/Caregiver Education, Therapeutic Activities,Therapeutic Exercise,Self- Care/Home Management PT Services Indicated Yes Treatment Frequency and 1-2x/wk for 10 sessions Duration These treatments will address the objective and functional deficits as defined above. The patient will be advanced safely and appropriately in order for the patient to progress towards his/her prior level of function. Additional exercises will be introduced and as well as a comprehensive home exercise program upon discharge, if needed, ?to ensure carryover of functional gains achieved in the clinic. This treatment plan has been reviewed and agreement upon by the patient.
--- NOTE | 2025-03-24 10:45 | OPREHPOC ---
Outpatient Therapy Plan of Care This is a Multidisciplinary Plan of Care that may contain components documented by all disciplines (PT, OT, and ST.) PT Problem 1 PT Problem #1 Knowledge Deficit PT Goal 1 Goal / Goal Update Patient to demonstrate independence with HEP for improved self-reliance of symptom management. 03-24-25 d/c goal met Target Visit 5 Progress Met PT Problem 2 PT Problem #2 Pain PT Goal 1 Goal / Goal Update 1. Patient to decrease subjective reports of pain to <4/10 when walking >=10 minutes for improved ADL tolerance. 2. Patient to report an improvement in radiating symptoms at rest by 25% to increase ability to perform ADLs. 3. Patient will decrease their Modified Oswestry score by at least 10 points to indicate significant improvement in functional abilities and quality of life. 03-24-25 d/c goal 3 met; #1 0-8/10; #2- radicular pain into thighs; #3: 36% Target Visit 10 Progress Partially Met PT Problem 3 PT Problem #3 Impaired Range of Motion PT Goal 1 Goal / Goal Update Pt to achieve neutral spine position in standing with decreased radicular symptoms to improve posture. 03-24-25 d/c goal met Target Visit 10 Progress Met PT Problem 4 PT Problem #4 Impaired Endurance PT Goal 1 Goal / Goal Update Patient to improve distance ambulated during 2MWT from 143 feet to 200 feet to demonstrate an improvement in ADL endurance required for grocery shopping. 03-24-25 d/c goal met Target Visit 10 Progress Met
--- NOTE | 2025-03-24 10:45 | PTOPDC ---
Assessment and note entered by Courtney Martini, PT Assessment Status Discharge ICD-10 Condition Codes (PT) Pain in low back M54.50 Subjective Information like the water exercises; use the cane when legs are weak and whenever I need it; am on the waiting list to get into an assisted living facility; have been careful to not irritate my back, watching what I do and not lifting; Reported Pain Level Pain Score Self Report Additional Pain Score Comments pain range in the past week 0-8/10; into both thighs, whole thigh at worst; legs feel weak and cannot hold her; report walking/standing tolerance with home activity about 30 minutes; reinforced use of heating pad, rest, take aleve PRN for pain; does not have a back brace, discussed PRN use for increase pain or increase activity; Assessment PT Clinical Summary Gael has received 9 PT sessions, on land and in the water. Compared to the initial evaluation: pain rating from 0-7/10 to 0-8/10, with radicular pain continuing to be into both thighs to knees; self assessment with back index rating of 60 to 36% limitation in activity level; 2 minute walking test distance from 143' with increase pain reported to 375' with cane and no pain increase; education for back care, HEP and pain management completed. The goals were partially met. Discharge PT services. Plan of Care PT Services Indicated No
== END 2025-03-24 12:09 | disposition home or self-care (01) ==
LOC: ANHPT 10:00
PROVIDERS: PCP Family Medicine; Visit Provider Family Medicine
DX: M54.50 Low back pain, unspecified (principal); G89.29 Other chronic pain
CPT/HCPCS: 97110; 97113; 97116; 97161; 97530